=== PATIENT | male | born 1980 | race Caucasian/White ===

== ENCOUNTER → 2016-10-08 | Outpatient (CLI) | payer OTHER ==
[~2016-10-08] MED LIST: IOPAMIDOL (ISOVUE-300) 50 ML VIAL IV ONE
--- NOTE | 2016-10-08 16:47 | CT ---
CT Scan of the Abdomen and Pelvis (With Contrast) October 08, 2016 Indication: Left lower quadrant pain. Technique: Dilute contrast was given orally prior to scanning. 90 mL of Isovue 300 were given intra venously by machine power injection. Multidetector helical CT imaging was performed from the diaphra gm to the symphysis pubis. Dose reduction techniques were utilized. Findings: A centimeter-sized rounded lobule of fat along the ventral aspect of the descending colon has surrounding mesenteric edema characteristic of epiploic appendagitis. The adjacent descending and sigmoid colon are normal. No diverticula or diverticulitis. No pneumoperitoneum, free fluid, abscess , lymphadenopathy or mass. The appendix is surgically absent. The liver, spleen, pancreas, contracted gallbladder, adrenal glands, and kidneys are normal. No nephr olithiasis, hydroureteronephrosis or perinephric edema. The urinary bladder and prostate gland are no rmal. The lung bases are clear. The lumbar spine is anatomically aligned. No pars defect. A benign Schmorl' s node is present in the superior endplate of L3. Impression: 1. Epiploic appendagitis along the descending colon is etiology of pain. 2. No diverticulitis or free fluid. Comment: The results were discussed with Janette Hunter PA-C, at time of study completion at 4:25 p. m. On October 08, 2016.
== END ==
LOC: FIMAGING 14:17
DX: K63.89 Other specified diseases of intestine (principal)
CPT/HCPCS: Q9967